=== PATIENT | male | born 1995 | race Caucasian/White ===

== ENCOUNTER 2018-12-17 18:43 | Emergency (ER) | payer OTHER ==
[~2018-12-17] VITALS: Ht 165.1 cm; Wt 84.9 kg
[2018-12-17 18:45] VITALS: Ht 165.1 cm; Wt 84.9 kg
[2018-12-17] MEDS ORDERED: LIDOCAINE/MYLANTA 40 ML BTL PO STA (19:22)
[2018-12-17] MEDS ORDERED: BELLADONNA/PHENOBARBITAL TAB PO STA (19:22)
[2018-12-17] MEDS ORDERED: morphine 4 MG/ML VIAL IV STA (19:22)
[2018-12-17] MEDS ORDERED: SOD CHLORIDE 0.9% 1,000 ML IV STA (19:22)
[2018-12-17] MEDS ORDERED: ONDANSETRON 4 MG INJ IV STA (19:22)
--- NOTE | 2018-12-17 19:31 | ERD ---
ER Documentation Chief Complaint Chief Complaint VOMIT X'S 1 DAY HPI 23-year-old male presents complaint of abdominal pain, vomiting, diarrhea. States that the diarrhea started on Tuesday. In addition he states he had some fevers then 2. States that the vomiting abdominal pain started this morning. He went to an urgent care this morning and they prescribed him azithromycin and Zofran but he is been unable to hold down the medication. He called urgent care today and they told to come to the ER. States that he has been having continued vomiting episodes unable to hold on any fluids. In addition he states that he has not been hungry. Vomitus described as nonbilious nonbloody. Diarrhea is described as nonbloody. ROS All systems reviewed and are negative except as per history of present illness. Medications Home Meds Active Scripts Hydrocodone/Acetaminophen ([place] 5-325 Tablet) 1 Each Tablet, 1 EACH PO Q6, #15 TAB Prov:SAIMA AUSTIN PA-C 12/17/18 Metronidazole* (Flagyl*) 500 Mg Tablet, 500 MG PO TID for 7 Days, TAB Prov:SAIMA AUSTIN PA-C 12/17/18 Ciprofloxacin Hcl* (Ciprofloxacin Hcl*) 500 Mg Tablet, 500 MG PO BID, #14 TAB Prov:SAIMA AUSTIN PA-C 12/17/18 Ondansetron (Ondansetron Odt) 4 Mg Tab.rapdis, 4 MG PO Q6H PRN for NAUSEA AND/OR VOMITING, #20 TAB Prov:SAIMA AUSTIN PA-C 12/17/18 Dicyclomine HCl (Dicyclomine HCl) 10 Mg Capsule, 10 MG PO TID PRN for ABDOMINAL CRAMPING, #20 CAP Prov:TY PIERRE 12/17/18 Ondansetron (Ondansetron Odt) 8 Mg Tab.rapdis, 8 MG PO Q6H PRN for NAUSEA AND/OR VOMITING, #10 TAB Prov:TY PIERRE 12/17/18 Allergies Allergies: Coded Allergies: No Known Allergy (Unverified , 12/17/18) PMhx/Soc Medical and Surgical Hx: pt denies Medical Hx, pt denies Surgical Hx Hx Alcohol Use: Yes Hx Substance Use: No Hx Tobacco Use: No Smoking Status: Never smoker FmHx Family History: No diabetes, No coronary disease, No other Physical Exam Vitals Vital Signs Date Temp Pulse Resp B/P (MAP) Pulse Ox O2 O2 Flow FiO2 Time Delivery Rate 12/17/18 98.6 67 18 133/80 97 18:45 (97) Physical Exam Const: No acute distress Head: Atraumatic Eyes: Normal Conjunctiva ENT: Normal External Ears, Nose and Mouth. Neck: Full range of motion. No meningismus. Resp: Clear to auscultation bilaterally Cardio: Regular rate and rhythm, no murmurs Abd: Tenderness palpation of the lower right upper right quadrants. Skin: No petechiae or rashes Back: No midline or flank tenderness Ext: No cyanosis, or edema Neur: Awake and alert Psych: Normal Mood and Affect Result Diagram: 12/17/18193712/17/181937 Results 24 hrs Laboratory Tests Test 12/17/18 19:38 White Blood Count 13.2 10^3/ul Red Blood Count 5.71 10^6/ul Hemoglobin 16.5 g/dl Hematocrit 46.6 % Mean Corpuscular Volume 81.6 fl Mean Corpuscular Hemoglobin 28.9 pg Mean Corpuscular Hemoglobin Concent 35.4 g/dl Red Cell Distribution Width 12.1 % Platelet Count 175 10^3/UL Mean Platelet Volume 10.4 fl Immature Granulocytes % 0.400 % Neutrophils % 82.8 % Lymphocytes % 9.4 % Monocytes % 7.1 % Eosinophils % 0.0 % Basophils % 0.3 % Nucleated Red Blood Cells % 0.0 /100WBC Immature Granulocytes # 0.050 10^3/ul Neutrophils # 11.0 10^3/ul Lymphocytes # 1.2 10^3/ul Monocytes # 0.9 10^3/ul Eosinophils # 0.0 10^3/ul Basophils # 0.0 10^3/ul Nucleated Red Blood Cells # 0.0 10^3/ul Urine Color YELLOW Urine Clarity CLEAR Urine pH 5.0 Urine Specific Smyer 1.025 Urine Ketones 2+ mg/dL Urine Nitrite NEGATIVE mg/dL Urine Bilirubin NEGATIVE mg/dL Urine Urobilinogen NEGATIVE mg/dL Urine Leukocyte Esterase NEGATIVE Peyman/ul Urine Hemoglobin NEGATIVE mg/dL Urine Glucose NEGATIVE mg/dL Urine Total Protein NEGATIVE mg/dl Sodium Level 142 mmol/L Potassium Level 4.1 mmol/L Chloride Level 106 mmol/L Carbon Dioxide Level 21 mmol/L Anion Gap 15 Blood Urea Nitrogen 14 mg/dl Creatinine 0.68 mg/dl Est Glomerular Filtrat Rate mL/min > 60 mL/min Glucose Level 108 mg/dl Calcium Level 8.9 mg/dl Total Bilirubin 1.3 mg/dl Direct Bilirubin 0.00 mg/dl Indirect Bilirubin 1.3 mg/dl Aspartate Amino Transf (AST/SGOT) 28 IU/L Alanine Aminotransferase (ALT/SGPT) 48 IU/L Alkaline Phosphatase 86 IU/L Total Protein 8.1 g/dl Albumin 4.5 g/dl Globulin 3.60 g/dl Albumin/Globulin Ratio 1.25 Lipase 49 U/L Current Medications Medications Dose Sig/Whitney Start Time Status Last (Trade) Ordered Route PRN Stop Time Admin Dose Reason Admin Sodium 1,000 ml @ Q1H STAT 12/17/18 DC 12/17/18 Chloride 1,000 mls/hr IV 19:22 12/17/18 19:44 20:21 Morphine 4 mg ONCE STAT 12/17/18 DC 12/17/18 Sulfate IV 19:22 12/17/18 19:44 (morphine) 19:25 Ondansetron 4 mg ONCE STAT 12/17/18 DC 12/17/18 HCl (Zofran IV 19:22 12/17/18 19:44 Inj) 19:25 40 ml ONCE STAT 12/17/18 DC 12/17/18 Miscellaneous PO 19:22 12/17/18 19:44 Medication 19:25 (Gi Cocktail (2)) Belladonna/ 2 tab ONCE STAT 12/17/18 DC 12/17/18 Phenobarbital PO 19:22 12/17/18 19:44 () 19:25 IV Flush 10 ml STK-MED 12/17/18 DC (NS 10 ml) ONCE .ROUTE 21:12 12/17/18 21:13 Sodium 100 ml @ ud STK-MED 12/17/18 DC Chloride ONCE .ROUTE 21:12 12/17/18 21:13 Iohexol 150 ml STK-MED 12/17/18 DC (Omnipaque ONCE .ROUTE 21:12/17/18 300mg/ ml) 21:13 Procedures/MDM DIAGNOSTIC IMAGING REPORT Patient: CHELSEY DING : 1995 Age: 23 Sex: M MR #: [id number] DOS: 12/17/18 1927 Ordering MD: TY PIERRE Location: [facility] Room/Bed: PROCEDURE: US Abdomen. CLINICAL INDICATION: Epigastric pain and vomiting TECHNIQUE: Multiple real-time images were acquired of the patient's abdomen and retroperitoneum utilizing a high resolution transducer. COMPARISON: None FINDINGS: The liver demonstrates increased echogenicity. The liver is normal in size and no focal solid lesions are seen. The liver measures 12.8 cm in length. The portal vein is patent with normal direction of flow. No intrahepatic biliary dilatation is seen. No gallstones are identified within the gallbladder. There is no pericholecystic fluid or gallbladder wall thickening. The common bile duct measures 4 mm in maximal dimension. The pancreas is not well seen due to overlying bowel gas. No free fluid is identified. The right kidney is normal in size, and demonstrate normal echogenicity and cortical thickness. The right kidney measures 10.2 cm in long dimension. There is no evidence of hydronephrosis. There are no kidney stones. The aorta is not well seen due to overlying bowel gas. IMPRESSION: Fatty infiltration of the liver.. RPTAT: AA .Mario Jackson MD, MD Date Time Electronically viewed and signed by .Mario Jackson MD, MD on 12/17/2018 20:57 .S/ CC: TY PIERRE [id number] MDM: Patient given IV fluids as well as Zofran and pain medication in ER. Labs were ordered as well. Given findings of lower right quadrant upper right quadrant abdominal pain there was a gallbladder ultrasound as well as CT ordered. Patient was signed out to [facility] pending CT and ultrasound results. CT shows ileocolitis. Ultrasound is nonacute. Patient discharged with Cipro Flagyl Zofran and [place]. Patient counseled regarding my diagnostic impression and care plan. Prior to discharge all questions answered. Pt agrees with treatment plan and understands strict return precautions. Pt is instructed to follow up with primary care provider within 24-48 hours. Precautionary instructions provided including instructions to return to the ER if not improving or for any worsening or changing symptoms or concerns. Please refer to Ty's note regarding patient's visit here. Departure Diagnosis: Primary Impression: Nausea, vomiting, and diarrhea Additional Impression: Ileocolitis Condition: Stable TY PIERRE Dec 17, 2018 19:31 SAIMA AUSTIN PA-C Dec 17, 2018 22:09
[2018-12-17] MEDS ORDERED: ONDA8TAB14 PO (20:53)
[2018-12-17] MEDS ORDERED: DICY10CA40 PO (20:55)
[2018-12-17] MEDS ORDERED: IOHEXOL 300MG/ML 150 ML BTL ONE (21:12)
[2018-12-17] MEDS ORDERED: SOD CHLORIDE 0.9% 100 ML ONE (21:12)
[2018-12-17] MEDS ORDERED: HYDR-4011 PO (22:07)
[2018-12-17] MEDS ORDERED: ONDA4TAB14 PO (22:07)
[2018-12-17] MEDS ORDERED: METR500T PO (22:07)
[2018-12-17] MEDS ORDERED: CIPR500T4 PO (22:07)
[2018-12-17 22:18] VITALS: BP 112/76; PULSE 71; RESP 16
== END 2018-12-17 22:24 | disposition home or self-care (01) ==
LOC: FTE 18:43
DX: K52.9 Noninfective gastroenteritis and colitis, unspecified (principal)
CPT/HCPCS: 36415; 74177; 76705; 80053; 81003; 83690; 85025; 96374; 96375; 99285; J2270; J2405; J7030; Q9967